=== PATIENT | female | born 2000 | race Two or more races ===

== ENCOUNTER 2024-04-13 20:24 | Emergency (ER) | payer BC, OTHER ==
[2024-04-13] VITALS (8 sets, daily range): O2SAT 93–100
[~2024-04-13] VITALS: Ht 167.6 cm; Wt 63.5 kg
[2024-04-13] MEDS ORDERED: predniSONE 20 MG TABLET ONE (21:27)
[2024-04-13] MEDS: predniSONE 20 MG TABLET PO ONE (21:30)
[2024-04-13] MEDS: IPRATROPIUM NEB FS 0.5 MG/2.5 ML AMPUL.NEB NEB ONE (21:40)
[2024-04-13] MEDS: ALBUTEROL FS 2.5 MG/3 ML VIAL.NEB NEB ONE ×2 (21:40→22:33)
[2024-04-13] MEDS ORDERED: ALBUTEROL FS 2.5 MG/3 ML VIAL.NEB ONE ×2 (21:45→22:05)
[2024-04-13] MEDS ORDERED: IPRATROPIUM NEB FS 0.5 MG/2.5 ML AMPUL.NEB ONE (21:45)
[2024-04-13] MEDS ORDERED: PRED50TA PO (21:49)
[2024-04-13] MEDS ORDERED: ALBU18HF2 INH (21:49)
[2024-04-13] MEDS: Magnesium 1GM/D5W 100ML PREMIX 200 ML IV ONE (23:30)
[2024-04-13] MEDS ORDERED: Magnesium 1GM/D5W 100ML PREMIX 100 ML IV ONE (23:31)
[2024-04-14] MEDS ORDERED: Magnesium 1GM/D5W 100ML PREMIX 100 ML IV ONE (00:11)
[2024-04-14] MEDS: ALBUTEROL FS 2.5 MG/3 ML VIAL.NEB NEB ONE (00:11)
[2024-04-14] MEDS ORDERED: ALBUTEROL FS 2.5 MG/3 ML VIAL.NEB ONE (00:11)
[2024-04-14 01:12] VITALS: BP 125/79; TEMP 98.2; O2SAT 97
== END 2024-04-14 01:12 | disposition home or self-care (01) ==
LOC: ER 20:26
DX: J45.901 Unspecified asthma with (acute) exacerbation (principal); Z87.01 Personal history of pneumonia (recurrent)
CPT/HCPCS: 99285; 96365; 71045; 94799; 94640; J7512; J3475 ×2

== ENCOUNTER 2024-05-29 07:33 | Emergency (ER) | payer BC ==
[~2024-05-29] VITALS: Ht 167.6 cm; Wt 67.1 kg
[~2024-05-29 07:33] MED LIST: ALBU18HF2 INH; PRED50TA PO
[2024-05-29] MEDS ORDERED: ALBUTEROL FS 2.5 MG/3 ML VIAL.NEB ONE (07:41)
[2024-05-29] MEDS ORDERED: ACETAMINOPHEN ES 500 MG TABLET ONE (07:45)
[2024-05-29 07:46] VITALS: O2SAT 96
[2024-05-29] MEDS: ALBUTEROL FS 2.5 MG/3 ML VIAL.NEB CONTNEB ONE (07:46)
[2024-05-29] MEDS: IPRATROPIUM NEB FS 0.5 MG/2.5 ML AMPUL.NEB NEB ONE (07:46)
[2024-05-29] MEDS: ACETAMINOPHEN ES 500 MG TABLET PO ONE (07:54)
[2024-05-29 08:06] VITALS: O2SAT 98
[2024-05-29] MEDS: predniSONE 20 MG TABLET PO ONE (08:09)
[2024-05-29] MEDS ORDERED: PRED50TA PO (08:27)
[2024-05-29] MEDS ORDERED: ALBU2.5V13 NEB (08:27)
[2024-05-29 08:43] VITALS: BP 128/94; TEMP 97.9; O2SAT 96
== END 2024-05-29 08:44 | disposition home or self-care (01) ==
LOC: ER 07:36
DX: F41.9 Anxiety disorder, unspecified (principal); J45.901 Unspecified asthma with (acute) exacerbation; Z79.52 Long term (current) use of systemic steroids
CPT/HCPCS: 99283; 94799; 94640; J7512